=== PATIENT | female | born 1980 | race Caucasian/White ===

== ENCOUNTER → 2025-01-19 11:10 | Outpatient (BNVA) | payer OTHER, SELFPAY | PROVIDERS: Visit Provider Physician Assistant Medical | DX: S97.111A Crushing injury of right great toe, initial encounter (principal); W23.1XXA Caught, crushed, jammed, or pinched between stationary objects, initial encounter; Z23 Encounter for immunization | CPT/HCPCS: 29515; 73630; 90715; 99202 ==

== ENCOUNTER → 2025-01-24 11:25 | Outpatient (BNVA) | payer OTHER, SELFPAY | PROVIDERS: Visit Provider Physician Assistant Medical | DX: S97.111A Crushing injury of right great toe, initial encounter (principal); W23.1XXA Caught, crushed, jammed, or pinched between stationary objects, initial encounter | CPT/HCPCS: 99213 ==

== ENCOUNTER → 2025-01-31 10:47 | Outpatient (BNVA) | payer OTHER, SELFPAY | PROVIDERS: Visit Provider Physician Assistant Medical | DX: S97.111D Crushing injury of right great toe, subsequent encounter (principal); W23.1XXD Caught, crushed, jammed, or pinched between stationary objects, subsequent encounter | CPT/HCPCS: 99213 ==

== ENCOUNTER 2025-02-14 08:14 | Outpatient (REF) | payer OTHER, SELFPAY ==
--- NOTE | ~2025-02-14 | XR_ITS ---
EXAMINATION: XR FOOT 3 OR MORE VIEWS RIGHT HISTORY: S92.351A - Displaced fracture of fifth metatarsal bone, right foot, initial... COMPARISON: Comparison is made with the prior examination dated 01/19/2025. FINDINGS: Three views of the right foot are submitted. Osseous mineralization is normal. Again seen is a nondisplaced fracture of the lateral aspect of the base of the distal phalanx of the great toe. The fracture line remains visible. The joint spaces are preserved. The soft tissues are unremarkable. XR/XR foot RT min 3V IMPRESSION: Nondisplaced fracture of the lateral aspect of the base of the distal phalanx of the great toe without change. Electronically signed by: Linus Delgado MD 02/14/2025 09:49 AM EDT
== END 2025-02-14 08:15 | disposition home or self-care (01) ==
LOC: HO.HOSX 08:14
PROVIDERS: Visit Provider Physician Assistant
DX: S92.401D Displaced unspecified fracture of right great toe, subsequent encounter for fracture with routine healing (principal); S92.351A Displaced fracture of fifth metatarsal bone, right foot, initial encounter for closed fracture; W20.8XXD Other cause of strike by thrown, projected or falling object, subsequent encounter; Y99.0 Civilian activity done for income or pay
CPT/HCPCS: 73630; 99202

== ENCOUNTER 2025-02-14 09:09 | Outpatient (AMB) | payer OTHER, SELFPAY ==
--- NOTE | 2025-02-14 09:28 | A.OFFVIS_ITS ---
Vital Signs 02/14/25 09:31 Height 5 ft 2 in Weight 130 lb BMI 23.8 Intake Visit Reasons: FC-Rt foot fx DOI:01/19/25 Intake Note: Anabel is a 44 year old female who presents today for a fracture care visit to right great toe fracture status post work injury, DOI 01/19/25. Patient was referred by work connection status post injury to her foot due to oxygen tank falling on foot. She was placed in a post op shoe. At today's visit she states that the post op shoe is really helping her and feels that it relieves the pressure. Patient states that she is 8 1/2 shoe W. Allergies No Known Allergies Allergy (Verified 02/14/25 09:31) HPI HPI FC-Rt foot fx DOI:01/19/25: Details: 44-year-old female presents to the office today for an injury she sustained to her right great toe on 01/19/2025 when an oxygen tank fell on her foot. She was seen at the work connection and given a postop shoe and referred to our office for ortho eval. She has been out of work since the date of injury. She states she has been using the postop shoe when she is out of the house but while in the house she will often walk barefoot. She states when she is walking barefoot she has minimal discomfort or ends up walking on the side of her foot. She states she tried to put on a Santyl the other day but felt discomfort. She works as a [employer]. [facility] Social History (Updated 02/14/25 @ 09:32 by Arlet Miranda) Alcohol intake: current Alcohol intake frequency: holidays/special occasions only Patient Tobacco Use Status: Former Tobacco user Current occupational status: employed Current occupation: [employer]DER- 32 hours Review of Systems Const All systems reviewed & are unremarkable except as noted in HPI and below Physical Exam Vital Signs: BMI result Body Mass Index 23.8 Const General: cooperative and no acute distress Orientation/consciousness: patient oriented x3 Resp Effort & Inspection: normal respiratory effort and able to speak in complete sentences Cardio Peripheral pulses: Peripheral pulses 2+ throughout Neuro General: patient oriented x3 Extrem Other: Right foot normal to inspection there is some diffuse swelling over the great toe with mild discomfort. Neurovascularly intact. Results Reviewed Results Reviewed: X-rays of the right foot obtained in the office today show an avulsion fragment and along the IP joint of the great toe. Assessment & Plan Assessment & Plan (1) Fracture of right great toe: Code(s): S92.401A - Displaced unspecified fracture of right great toe, initial encounter for closed fracture Category: Medical Plan: Patient will continue to use her postop shoe for comfort. I did explain that she should not alter her gait pattern or push through pain. I encouraged her to wear comfortable shoes when ambulating. In 3 weeks she will return to work 4 hours a day for 2 weeks and then resume normal duty. If there is any questions or concerns going forward she will contact our office otherwise follow up as needed. Orders: Orders XR foot RT min 3V Today S92.351A - Displaced fracture of fifth metatarsal bone, right foot, initial encounter for closed fracture Coding Level of Care Code New Pt Level 3 (83496) Complex EM visit Add On G2211 Diagnoses Fracture of right great toe S92.401A
[2025-02-14 09:31] VITALS: BMI 23.8
== END 2025-02-14 09:49 | disposition home or self-care (01) ==
LOC: HO.HOS 09:09
PROVIDERS: Visit Provider Physician Assistant
DX: S92.401A Displaced unspecified fracture of right great toe, initial encounter for closed fracture (principal)
CPT/HCPCS: 99203; G2211

== ENCOUNTER → 2025-02-14 09:10 | Outpatient (BNV) | payer OTHER, SELFPAY | PROVIDERS: Visit Provider Radiology Diagnostic Radiology | DX: S92.424 Nondisplaced fracture of distal phalanx of right great toe (principal) | CPT/HCPCS: 73630 ==